=== PATIENT | male | born 2000 | race Caucasian/White ===

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

== ENCOUNTER 2022-05-12 01:48 | Inpatient (IN) | payer OTHER ==
--- NOTE | 2022-05-12 03:21 | ED ---
General Adult HPI - General Chief complaint: Abdominal Pain Stated complaint: Abdominal Pain Time Seen by Provider: 05/12/22 02:42 Source: patient, family, RN notes reviewed, old records reviewed Mode of arrival: ambulatory Limitations: no limitations - History of Present Illness Initial comments: 21-year-old male presenting for evaluation of epigastric abdominal pain. Pain began suddenly prior to arrival. Patient has previous history of pancreatitis. States the same was similar to his previous episode. He is not currently on any medication. His pain is resolved at the time my evaluation. No vomiting. No fever. - Related Data Previous Rx's Medication Instructions Recorded Sennosides [Senokot] 8.6 mg PO DAILY PRN #30 tab 09/29/21 Allergies Allergy/AdvReac Type Severity Reaction Status Date / Time No Known Allergies Allergy Verified 05/12/22 02:19 Review of Systems ROS Statement: Those systems with pertinent positive or pertinent negative responses have been documented in the HPI. ROS Other: All systems not noted in ROS Statement are negative. Past Medical History Additional Past Medical History / Comment(s): Autism, sipina bifida History of Any Multi-Drug Resistant Organisms: None Reported Additional Past Surgical History / Comment(s): Additional Surgical Hx: Double Hydrocele repair Past Anesthesia/Blood Transfusion Reactions: No Reported Reaction Past Psychological History: No Psychological Hx Reported Smoking Status: Never smoker Past Alcohol Use History: None Reported Past Drug Use History: None Reported - Past Family History Father Family Medical History: No Reported History Mother Family Medical History: Dialysis Additional Family Medical History / Comment(s): degenerative kidney dx General Exam Limitations: no limitations General appearance: alert, in no apparent distress Head exam: Present: atraumatic, normocephalic Eye exam: Present: normal appearance, PERRL ENT exam: Present: normal exam Neck exam: Present: normal inspection. Absent: tenderness, meningismus Respiratory exam: Present: normal lung sounds bilaterally. Absent: respiratory distress, wheezes Cardiovascular Exam: Present: regular rate, normal rhythm GI/Abdominal exam: Present: soft. Absent: distended, tenderness, guarding, rebound Extremities exam: Present: normal inspection, normal capillary refill Neurological exam: Present: alert. Absent: motor sensory deficit Skin exam: Present: warm, dry, intact. Absent: cyanosis, diaphoretic Course Vital Signs 05/12/22 02:15 Temperature 97.8 F Pulse Rate 98 Respiratory 20 Rate Blood Pressure 141/97 O2 Sat by Pulse 100 Oximetry Medical Decision Making - Medical Decision Making 21-year-old male presenting with epigastric abdominal pain history of pancreatitis. Cause of previous pancreatitis is unknown. He does follow with gastroenterology. Laboratory testing reveals normal CBC, elevated amylase and lipase. Ultrasound will be ordered, pending result. Patient will be admitted to internal medicine with gastroenterology on consult. - Lab Data Result diagrams: 05/12/22 03:22 05/12/22 03:22 Lab Results 05/12/22 05/12/22 05/12/22 Range/Units 03:22 03:22 03:22 WBC 5.9 (4.0-11.0) k/uL RBC 5.76 (4.30-5.90) m/uL Hgb 16.8 (13.0-17.5) gm/dL Hct 51.0 (39.0-53.0) % MCV 88.4 (80.0-100.0) fL MCH 29.2 (25.0-35.0) pg MCHC 33.1 (31.0-37.0) g/dL RDW 14.0 (11.5-15.5) % Plt Count 246 (150-450) k/uL MPV 7.2 Neutrophils % 54 % Lymphocytes % 33 % Monocytes % 8 % Eosinophils % 2 % Basophils % 1 % Neutrophils # 3.2 (1.3-7.7) k/uL Lymphocytes # 2.0 (1.0-4.8) k/uL Monocytes # 0.4 (0-1.0) k/uL Eosinophils # 0.1 (0-0.7) k/uL Basophils # 0.1 (0-0.2) k/uL PT 10.4 (9.0-12.0) sec INR 0.9 (<1.2) APTT 29.1 (22.0-30.0) sec Sodium 141 (137-145) mmol/L Potassium 4.5 (3.5-5.1) mmol/L Chloride 101 (98-107) mmol/L Carbon Dioxide 30 (22-30) mmol/L Anion Gap 10 mmol/L BUN 15 (9-20) mg/dL Creatinine 1.31 H (0.66-1.25) mg/dL Est GFR (CKD-EPI)AfAm >90 (>60 ml/min/1.73 sqM) Est GFR (CKD-EPI)NonAf 79 (>60 ml/min/1.73 sqM) Glucose 78 (74-99) mg/dL Plasma Lactic Acid Ronald (0.7-2.0) mmol/L Calcium 9.7 (8.4-10.2) mg/dL Total Bilirubin 0.7 (0.2-1.3) mg/dL AST 24 (17-59) U/L ALT 17 (4-49) U/L Alkaline Phosphatase 91 (38-126) U/L Total Protein 7.0 (6.3-8.2) g/dL Albumin 4.5 (3.5-5.0) g/dL Amylase 501 H* (30-110) U/L 05/12/22 Range/Units 03:22 WBC (4.0-11.0) k/uL RBC (4.30-5.90) m/uL Hgb (13.0-17.5) gm/dL Hct (39.0-53.0) % MCV (80.0-100.0) fL MCH (25.0-35.0) pg MCHC (31.0-37.0) g/dL RDW (11.5-15.5) % Plt Count (150-450) k/uL MPV Neutrophils % % Lymphocytes % % Monocytes % % Eosinophils % % Basophils % % Neutrophils # (1.3-7.7) k/uL Lymphocytes # (1.0-4.8) k/uL Monocytes # (0-1.0) k/uL Eosinophils # (0-0.7) k/uL Basophils # (0-0.2) k/uL PT (9.0-12.0) sec INR (<1.2) APTT (22.0-30.0) sec Sodium (137-145) mmol/L Potassium (3.5-5.1) mmol/L Chloride (98-107) mmol/L Carbon Dioxide (22-30) mmol/L Anion Gap mmol/L BUN (9-20) mg/dL Creatinine (0.66-1.25) mg/dL Est GFR (CKD-EPI)AfAm (>60 ml/min/1.73 sqM) Est GFR (CKD-EPI)NonAf (>60 ml/min/1.73 sqM) Glucose (74-99) mg/dL Plasma Lactic Acid Ronald 0.7 (0.7-2.0) mmol/L Calcium (8.4-10.2) mg/dL Total Bilirubin (0.2-1.3) mg/dL AST (17-59) U/L ALT (4-49) U/L Alkaline Phosphatase (38-126) U/L Total Protein (6.3-8.2) g/dL Albumin (3.5-5.0) g/dL Amylase (30-110) U/L Disposition Clinical Impression: Acute pancreatitis Disposition: ADMITTED IP TO THIS [facility] Condition: Stable Is patient prescribed a controlled substance at d/c from ED?: No Referrals: Sarah Marinelli MD [Primary Care Provider] - 1-2 days Time of Disposition: 05:07
[2022-05-12 03:33] LABS: Basophils # (A) 0.1 k/uL (0-0.2); Basophils % (A) 1 %; Eosinophils # (A) 0.1 k/uL (0-0.7); Eosinophils % (A) 2 %; HGB 16.8 gm/dL (13.0-17.5); Lymphocytes % (A) 33 %; MCH 29.2 pg (25.0-35.0); MCHC 33.1 g/dL (31.0-37.0); MCV 88.4 fL (80.0-100.0); Mean Platelet Volume 7.2; Monocytes # (A) 0.4 k/uL (0-1.0); Monocytes % (A) 8 %; Neutrophils # (A) 3.2 k/uL (1.3-7.7); Neutrophils % (A) 54 %; Platelet Count 246 k/uL (150-450); RBC 5.76 m/uL (4.30-5.90); WBC 5.9 k/uL (4.0-11.0)
[2022-05-12 03:44] LABS: ALT 17 U/L (4-49); AST 24 U/L (17-59); African American GFR (CKD) >90 (>60 ml/min/1.73 sqM); Albumin 4.5 g/dL (3.5-5.0); Alkaline Phosphatase 91 U/L (38-126); Anion Gap 10 mmol/L; Blood Urea Nitrogen 15 mg/dL (9-20); Calcium 9.7 mg/dL (8.4-10.2); Carbon Dioxide 30 mmol/L (22-30); Chloride 101 mmol/L (98-107); Glucose 78 mg/dL (74-99); Non-African American GFR(CKD) 79 (>60 ml/min/1.73 sqM); Potassium 4.5 mmol/L (3.5-5.1); Sodium 141 mmol/L (137-145); Total Bilirubin 0.7 mg/dL (0.2-1.3)
[2022-05-12 03:54] LABS: INR 0.9 (<1.2); Partial Thromboplastin Time 29.1 sec (22.0-30.0); Prothrombin Time 10.4 sec (9.0-12.0)
[2022-05-12 04:09] LABS: Amylase 501 U/L (30-110)
[2022-05-12] MEDS ORDERED: HYDROmorphone 0.5 MG/0.5 ML SYRINGE IVP PRN (05:03)
[2022-05-12] MEDS ORDERED: NALOXONE 0.4 MG/ML 1 ML VIAL IV PRN (05:03)
[2022-05-12 05:09] LABS: Lipase 9300 U/L (23-300)
[2022-05-12] MEDS: ONDANSETRON 4 MG/2 ML VIAL IVP PRN (05:23)
[2022-05-12] MEDS: SODIUM CHLORIDE 0.9% 1,000 ML IV SCH ×2 (05:24→13:37)
--- NOTE | 2022-05-12 07:39 | US ---
EXAMINATION TYPE: US gallbladder DATE OF EXAM: 05/12/2022 COMPARISON: CT 09/26/2021 CLINICAL HISTORY: ab pain. elevated pancreatic enzymes TECHNIQUE: Multiple sonographic images of the right upper quadrant are obtained. 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 Pancreas is obscured by overlying bowel gas on images saved. IVC is seen near the hepatic dome. Visua lized liver is homogeneous without concerning mass or ductal dilatation. No adjacent ascites. Gallbla dder is seen without shadowing mobile gallstones. No right-sided hydronephrosis. IMPRESSION: Suboptimal evaluation of pancreas otherwise unremarkable study.
--- NOTE | 2022-05-12 16:45 | P.CONS ---
History of Present Illness - Reason for Consult Consult date: 05/12/22 (Patient initially seen approximately 8 AM) Pancreatitis Requesting physician: Elgin Perales - Chief Complaint Epigastric pain - History of Present Illness This is a 21-year-old male who presented to the emergency department with complaints of epigastric pain that was severe late last night. That pain has now improved. Patient does have a history of pancreatitis. His first episode of pancreatitis was in August of this year where he was seen and evaluated her e. Patient's father is at the bedside and states that they have no clear etiology at the cause of his pancreatitis. Patient denies any history of alcohol use, no new medications, they have no family history of pancreatitis. Denies any gallbladder disease. Patient had a ultrasound of the gallbladder on admission that showed no gallbladder stones, CBD within normal limits. Gastroenterology was consulted for acute pancreatitis. Patient denies any nausea or vomiting. Again pain has completely resolved at this time. Patient has been afebrile, no evidence of leukocytosis. LFTs are within normal limits. Amylase 501 lipase 9300 Review of Systems REVIEW OF SYSTEMS: CARDIOPULMONARY: No chest pain or shortness of breath. Gastrointestinal: Severe epigastric pain now resolved. No nausea or vomiting. No hematemesis, coffee-ground emesis. No rectal bleeding, or melena. GENITOURINARY: No dysuria or hematuria. MUSCULOSKELETAL: Reports normal range of motion., Joint pain. SKIN: No rashes. No jaundice. ENDOCRINE: No chills, fevers. No excessive weight gain or loss. No polydipsia or polyuria. PSYCHIATRIC: Unremarkable. NEUROLOGY: No change in mental status. Denies dizziness, headache. ENT: Vision unremarkable. CONSTITUTIONAL: No recent weight loss. No fever, chills, night sweats. Past Medical History Additional Past Medical History / Comment(s): Autism, sipina bifida History of Any Multi-Drug Resistant Organisms: None Reported Additional Past Surgical History / Comment(s): Additional Surgical Hx: Double Hydrocele repair Past Anesthesia/Blood Transfusion Reactions: No Reported Reaction Past Psychological History: No Psychological Hx Reported Smoking Status: Never smoker Past Alcohol Use History: None Reported Past Drug Use History: None Reported - Past Family History Father Family Medical History: No Reported History Mother Family Medical History: Dialysis Additional Family Medical History / Comment(s): degenerative kidney dx Medications and Allergies Home Medications Medication Instructions Recorded Confirmed Type No Known Home Medications 05/12/22 05/12/22 History Allergies Allergy/AdvReac Type Severity Reaction Status Date / Time No Known Allergies Allergy Verified 05/12/22 08:30 Physical Exam Vitals: Vital Signs Temp Pulse Pulse Resp BP BP Pulse Ox 05/12/22 14:00 98 F 85 16 120/71 99 05/12/22 07:47 98.1 F 89 18 124/74 99 05/12/22 02:15 97.8 F 98 20 141/97 100 Intake and Output 05/12/22 05/12/22 05/12/22 06:59 14:59 22:59 Other: Weight 64.455 kg General appearance: The patient is alert, oriented, appears in no acute distress. HET: Head is normocephalic and atraumatic. Conjunctiva pink. Sclera anicteric. Neck: Supple without lymphadenopathy. Trachea midline. Heart: S1 S2. Regular rate and rhythm. Lungs: Clear to auscultation. Abdomen: Soft, nontender, nondistended with bowel sounds. No guarding or rigidity. Skin: No rashes. No jaundice. Extremities: Normal skin color and turgor. No pedal edema. Neurological: No focal deficits. Alert and oriented x3. Results CBC & Chem 7: 05/12/22 03:22 05/12/22 03:22 Labs: Abnormal Lab Results - Last 24 Hours (Table) 05/12/22 Range/Units 03:22 Creatinine 1.31 H (0.66-1.25) mg/dL Amylase 501 H* (30-110) U/L Lipase 9300 H (23-300) U/L US - abdomen: report reviewed (Suboptimal evaluation of pancreas pancreas. No gallbladder stones, CBD within normal limits. ) Assessment and Plan (1) Acute pancreatitis Narrative/Plan: 21-year-old male with a past medical history of pancreatitis, first episode diagnosed in August of this year. Unclear etiology at that time. Had a follow-up with Dr. Griffiths and is scheduled to see her again in July according to his dad. Patient denies any history of alcohol use, no new medications, no family history of pancreatitis or gallbladder disease. Patient's pain was acute on onset yesterday evening and he was presented to the emergency department for further evaluation. Since then symptoms have significantly improved. Patient had significant elevation of the lipase at 9300. LFTs within normal limits. Gallbladder ultrasound with no acute findings. Unclear etiology at this time. Will order triglycerides, anion IgG4 for autoimmune workup. Patient will need to follow-up again with Dr. Griffiths outpatient setting and may need to consider outpatient follow-up with [facility] for EUS. Current Visit: Yes Status: Acute Code(s): K85.90 - ACUTE PANCREATITIS WITHOUT NECROSIS OR INFECTION, UNSP SNOMED Code(s): 668027849 Plan: 1. Continue symptomatic and supportive care 2. Continue antiemetics as needed 3. Continue pain medication as needed 4. Aggressive IV hydration 5. Nothing by mouth with ice chips 6. Triglycerides, and 8, IgG4 ordered 7. Repeat daily CMP, lipase Thank you for this consultation, we will continue to follow. Dr. Dave Griffiths I agree with the dictator's note, documented as a scribe by Anna Martinez.
[2022-05-13] MEDS: SODIUM CHLORIDE 0.9% 1,000 ML IV SCH ×4 (00:55→14:44)
--- NOTE | 2022-05-13 02:09 | P.HPIM ---
History of Present Illness H&P Date: 05/12/22 This a 21-year-old male who recently presented to the emergency department with sudden onset severe abdominal pain and for evaluation. Patient was found to have acute pancreatitis with an elevated lipase of 9300 and amylase of 501. Patient reports this morning, pain has resolved and is maintained on NPO with occasional ice chips and GI consultation. Patient reports that he had an episode like this in August and did see Dr. Griffiths outpatient. Patient follows with DR. Marinelli as his pcp and has history of autism and spina bifida. Patient denies any drinking, smoking, or ilicit drug use. Family reports no family history of this as well and unsure of these episodes. Gallbladder ultrasound shows no stones. Patient admitted with GI consultation. Review Of Systems: Constitutional: No fever, no chills, no night sweats. No weight change. No weakness, fatigue or lethargy. No daytime sleepiness. EENT: No headache. No blurred vision or double vision, no loss of vision. No loss of Hearing, no ringing in the ears, no dizziness. No nasal drainage or congestion. No epistaxis. No sore throat. Lungs: No shortness of breath, cough, no sputum production. No wheezing. Cardiovascular: No chest pain, no lower extremity edema. No palpitations. No paroxysmal nocturnal dyspnea. No orthopnea. No lightheadedness or dizziness. No syncopal episodes. Abdominal: reports abdominal pain last night that has resolved. No nausea, vomiting. No diarrhea. No constipation. No bloody or tarry stools.. No loss of appetite. Genitourinary: No dysuria, increased frequency, urgency. No urinary retention. Musculoskeletal: No myalgias. No muscle weakness, no gait dysfunction, no frequent falls. No back pain. No neck pain. Integumentary: No wounds, no lesions. No rash or pruritus. No unusual bruising. No change in hair or nails. Neurologic: No aphasia. No facial droop. No change in mentation. No head injury. No headache. No paralysis. No paresthesia. Psychiatric: No depression. No anxiety. No mood swings. Endocrine: No abnormal blood sugars. No weight change. No excessive sweating or thirst. No cold intolerance. PHYSICAL EXAMINATION: GENERAL: The patient is alert and oriented x4, THin built Well developed, well nourished. HEENT: Pupils are round and equally reacting to light. EOMI. no scleral icterus. No conjunctival pallor. Normocephalic, atraumatic. No pharyngeal erythema. No thyromegaly. CARDIOVASCULAR: S1 and S2 muffled PULMONARY: diminished breath sounds bilaterally with no wheezing or rhonchi noted. ABDOMEN: soft. Non-tender on exam. non-distended, normoactive bowel sounds. No palpable organomegaly. MUSCULOSKELETAL: No joint swelling or deformity. EXTREMITIES: No cyanosis, clubbing, or pedal edema. NEUROLOGICAL: Gross neurological examination did not reveal any focal deficits. SKIN: No rashes. Assessment: Acute abdominal pain, now resolved possibly secondary to acute pancreatitis Acute pancreatitis with an elevated lipase of 9300, amylase 501 Acute kidney injury, likely prerenal due to dehydration History of autism Spina bifida GI prophylaxis DVT prophylaxis Full code Plan: Recommend to continue with GI following an IV hydration with follow-up labs. Patient is currently nothing by mouth, except ice chips Monitor for any worsening abdominal pain and follow am labs with possible discharge in 24 hours Patient may need further extensive workup at [facility] for possible EUS outpatient The impression and plan of care has been dictated by Patito Singleton, nurse practitioner as directed. Dr. Yamila MD I have performed a history and examination and MDM of this patient, discussed the same with the dictator, and agree with the dictator's assessment and plan as written ,documented as a scribe. Based on total visit time, I have performed more than 50% of the visit. Any additional findings or plans will be noted. Past Medical History Additional Past Medical History / Comment(s): Autism, sipina bifida History of Any Multi-Drug Resistant Organisms: None Reported Additional Past Surgical History / Comment(s): Additional Surgical Hx: Double Hydrocele repair Past Anesthesia/Blood Transfusion Reactions: No Reported Reaction Past Psychological History: No Psychological Hx Reported Smoking Status: Never smoker Past Alcohol Use History: None Reported Past Drug Use History: None Reported - Past Family History Father Family Medical History: No Reported History Mother Family Medical History: Dialysis Additional Family Medical History / Comment(s): degenerative kidney dx Medications and Allergies Home Medications Medication Instructions Recorded Confirmed Type No Known Home Medications 05/12/22 05/12/22 History Allergies Allergy/AdvReac Type Severity Reaction Status Date / Time No Known Allergies Allergy Verified 05/12/22 08:30 Physical Exam Vitals: Vital Signs Temp Pulse Resp BP Pulse Ox 05/12/22 07:47 98.1 F 89 18 124/74 99 05/12/22 02:15 97.8 F 98 20 141/97 100 Intake and Output 05/11/22 05/12/22 05/12/22 22:59 06:59 14:59 Other: Weight 64.455 kg Results CBC & Chem 7: 05/12/22 03:22 05/12/22 03:22 Labs: Abnormal Lab Results - Last 24 Hours (Table) 05/12/22 Range/Units 03:22 Creatinine 1.31 H (0.66-1.25) mg/dL Amylase 501 H* (30-110) U/L Lipase 9300 H (23-300) U/L Assessment and Plan Time with Patient: Greater than 30
[2022-05-13] MEDS: ONDANSETRON 4 MG/2 ML VIAL IVP PRN (07:58)
[2022-05-13 08:01] VITALS: RESP 16
[2022-05-13 10:52] LABS: African American GFR (CKD) 112.2 (60.0-200.0); Albumin 4.1 g/dL (3.8-4.9); Albumin/Globulin Ratio 2.05 (1.60-3.17); Anion Gap 11.1 mmol/L (10.00-18.00); BUN/Creat Ratio 12.36 Ratio (12.00-20.00); Blood Urea Nitrogen 13.6 mg/dL (9.0-27.0); Calcium 9.2 mg/dL (8.7-10.3); Carbon Dioxide 23.9 mmol/L (20.0-27.5); Non-African American GFR(CKD) 96.8 (60.0-200.0); Potassium 4.9 mmol/L (3.5-5.5); Total Bilirubin 1.2 mg/dL (0.30-1.20); Total Protein 6.1 g/dL (6.2-8.2)
[2022-05-13 11:59] LABS: IgG Subclass 1 482.1 mg/dL (382.40-928.60); IgG Subclass 2 373.9 mg/dL (241.80-700.30); IgG Subclass 3 125.6 mg/dL (21.82-176.00); IgG Subclass 4 6.5 mg/dL (3.92-86.40)
--- NOTE | 2022-05-13 14:46 | P.PN ---
Subjective Progress Note Date: 05/13/22 Principal diagnosis: Pancreatitis This is a 21-year-old male who presented to the emergency department with complaints of epigastric pain that was severe late last night. That pain has now improved. Patient does have a history of pancreatitis. His first episode of pancreatitis was in August of this year where he was seen and evaluated here. Patient's father is at the bedside and states that they have no clear etiology at the cause of his pancreatitis. Patient denies any history of alcohol use, no new medications, they have no family history of pancreatitis. Denies any gallbladder disease. Patient had a ultrasound of the gallbladder on admission that showed no gallbladder stones, CBD within normal limits. Gastroenterology was consulted for acute pancreatitis. Patient denies any nausea or vomiting. Again pain has completely resolved at this time. Patient has been afebrile, no evidence of leukocytosis. LFTs are within normal limits. Amylase 501 lipase 9300 05/13/2022: Patient seen and examined today as a follow-up for pancreatitis. He states he has no abdominal pain, no nausea or vomiting. He has been up and ambulating. He has been tolerating ice chips and small sips of liquid. Triglycerides came back at 31.8 and lipase was 38. MARY pending, IgG4 normal. Objective - Vital Signs Vital signs: Vital Signs Temp 97.3 F L 05/13/22 08:00 Pulse 74 05/13/22 09:38 Resp 16 05/13/22 08:00 BP 111/57 05/13/22 08:00 Pulse Ox 100 05/13/22 08:00 FiO2 Intake & Output 05/12/22 05/13/22 05/13/22 18:59 06:59 18:59 Intake Total 900 Balance 900 Weight 64.455 kg Intake: Intake, IV Titration 900 Amount Sodium Chloride 0.9% 1, 900 000 ml @ 150 mls/hr IV . Q6H40M FOR[facility]LY [facility], 1928–1983 Rx#:[id number] Other: Voiding Method Toilet Toilet # Voids 2 1 # Bowel Movements 1 - Exam General appearance: The patient is alert, oriented, appears in no acute distress. HET: Head is normocephalic and atraumatic. Conjunctiva pink. Sclera anicteric. Neck: Supple without lymphadenopathy. Abdomen: Soft, nontender, nondistended with bowel sounds. No guarding or rigidity. Extremities: Normal skin color and turgor. No pedal edema Skin: No rashes, no jaundice Neurological: No focal deficits. Alert and oriented 3. - Labs CBC & Chem 7: 05/12/22 03:22 05/13/22 07:20 Assessment and Plan (1) Acute pancreatitis Narrative/Plan: 21-year-old male with a past medical history of pancreatitis, first episode diagnosed in August of this year. Unclear etiology at that time. Had a follow-up with Dr. Griffiths and is scheduled to see her again in July according to his dad. Patient denies any history of alcohol use, no new medications, no family history of pancreatitis or gallbladder disease. Patient's pain was acute on onset yesterday evening and he was presented to the emergency department for further evaluation. Since then symptoms have significantly improved. Patient had significant elevation of the lipase at 9300. LFTs within normal limits. Gallbladder ultrasound with no acute findings. Unclear etiology at this time. Will order triglycerides, anion IgG4 for autoimmune workup. Patient will need to follow-up again with Dr. Griffiths outpatient setting and may need to consider outpatient follow-up with [facility] for EUS. Current Visit: Yes Status: Acute Code(s): K85.90 - ACUTE PANCREATITIS WITHOUT NECROSIS OR INFECTION, UNSP SNOMED Code(s): 170187635 Plan: 1. Advance to full liquid diet and advance as tolerated 2. If patient tolerates his diet he may be discharged home this afternoon 3. Discussed with patient and mother recommend outpatient follow-up with Dr. Griffiths, possible need for outpatient EUS Thank you for this consultation, patient is cleared for discharge from gastroenterology. Dr. Dave Griffiths I agree with the dictator's note, documented as a scribe by Anna Martinez.
[2022-05-13 15:49] VITALS: BP 112/60; PULSE 67; TEMP 97.7
== END 2022-05-13 16:33 | disposition home or self-care (01) | DRG 439 ==
LOC: EC 01:48 → 4SSUR 05:03 → 3SCARD 21:59
PROVIDERS: ADMIT Internal Medicine; ATTEND Internal Medicine
DX: K85.90 Acute pancreatitis without necrosis or infection, unspecified (principal); F84.0 Autistic disorder; E86.0 Dehydration; N17.9 Acute kidney failure, unspecified; R74.8 Abnormal levels of other serum enzymes; Q05.9 Spina bifida, unspecified; Z98.890 Other specified postprocedural states
CPT/HCPCS: 36415; 76705; 80053; 82150; 82787; 83605; 83690; 84478; 85025; 85610; 85730; 86038; 96374; 99285